=== PATIENT | male | born 1935 | race Caucasian/White ===

== ENCOUNTER 2022-01-25 18:34 | Emergency (ER) | payer OTHER ==
[~2022-01-25] VITALS: Wt 72.6 kg
[2022-01-25 20:20] LABS: HEMATOCRIT 31.8 % (42.0-52.0); MEAN CELL VOLUME 101.3 fl (80.0-94.0); MEAN CORPUSCULAR HGB 29.6 pg (27.0-31.0); MEAN CORPUSCULAR HGB CONC 29.2 g/dl (33.0-37.0); MEAN PLATELET VOLUME 12.5 fl (9.6-12.3); NUCLEATED RED BLOOD CELL 0.3 % (0.0-0.0); RED BLOOD COUNT 3.14 10*6/uL (4.50-5.90); RED CELL DISTRI WIDTH 17.1 % (0-14.5); WHITE BLOOD COUNT 8.6 10*3/uL (4.8-10.8)
[2022-01-25 20:21] LABS: CREATININE 1.73 mg/dL (0.70-1.30); MANUAL DIFF REFLEX YES; POTASSIUM 4.1 mmol/L (3.5-5.1); TOTAL PROTEIN 6.2 gm/dL (6.4-8.2)
[2022-01-25 20:22] LABS: ACT PARTIAL THROMBO TIME 30.5 SECONDS (20.0-32.1); INTERNATIONAL NORM RATIO 1.3 (2.0-3.5); PLATELET COUNT AUTOMATED 148 10*3/uL (130-400)
[2022-01-25 21:09] LABS: BASOPHILS 1 % (0-1); TOTAL CELLS COUNTED 100 #CELLS
[2022-01-25 21:10] LABS: PLATELET SUFFICIENCY NORMAL (NORMAL)
[2022-01-25 21:13] LABS: OVALOCYTES FEW
[2022-01-25 21:14] LABS: ACANTHOCYTES MODERATE
[2022-01-25 21:21] LABS: ABG BASE EXCESS -6.4 mmol/L (-2.0-2.0); ARTERIAL BLOOD GAS PH 7.363 (7.35-7.45); ARTERIAL BLOOD GAS PO2 97.7 (80-90)
== END 2022-01-25 22:23 | disposition short-term general hospital (02) ==
LOC: ED 18:34
PROVIDERS: Emergency Medicine
DX: I46.9 Cardiac arrest, cause unspecified (principal); I49.01 Ventricular fibrillation; I25.10 Atherosclerotic heart disease of native coronary artery without angina pectoris; Z95.5 Presence of coronary angioplasty implant and graft